=== PATIENT | female | born 2005 | race Caucasian/White ===

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

== ENCOUNTER → 2023-04-21 | Outpatient (CLI) | payer OTHER | LOC: LAB SHORT 08:21 → PLD 08:21 | DX: D22.4 Melanocytic nevi of scalp and neck (principal); L85.9 Epidermal thickening, unspecified | CPT/HCPCS: 88305 ==